=== PATIENT | male | born 2000 | race Caucasian/White ===

== ENCOUNTER 2019-01-03 12:22 | Emergency (ER) | payer BC ==
[2019-01-03 12:32] VITALS: TEMP 98.6
[2019-01-03] MEDS ORDERED: Alum-Mag Hydrox-Simethicone Susp (30 mL) PO STA (13:26)
--- NOTE | 2019-01-03 13:28 | C.PDOC ---
History Of Present Illness Patient is a 18 year old male who presents to the ED c/o transient left upper chest discomfort that began today at work while patient was on break. 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 He states that he spends 90 minutes doing cardio in the gym. Patient denies any GERD, abdominal pain, nausea, sweats, or SOB. Time Seen by Provider: 01/03/19 13:17 Chief Complaint (Nursing): Chest Pain History Per: Patient History/Exam Limitations: no limitations Onset/Duration Of Symptoms: Hrs Current Symptoms Are (Timing): Still Present Quality: Other (discomfort) Associated Symptoms: denies: Nausea, Dyspnea, Diaphoresis Recent travel outside of the [place]: No Additional History Per: Patient Past Medical History Reviewed: Historical Data, Nursing Documentation, Vital Signs Vital Signs: Last Vital Signs Temp 98.6 F 01/03/19 12:28 Pulse 73 01/03/19 12:28 Resp 17 01/03/19 12:28 BP 146/88 01/03/19 12:28 Pulse Ox 100 01/03/19 12:28 - Medical History PMH: No Chronic Diseases Surgical History: No Surg Hx Family History: States: No Known Family Hx - Social History Hx Alcohol Use: No Hx Substance Use: No - Immunization History Hx Tetanus Toxoid Vaccination: No Hx Influenza Vaccination: No Hx Pneumococcal Vaccination: No Review Of Systems Constitutional: Negative for: Sweats Cardiovascular: Positive for: Other (chest discomfort) Respiratory: Positive for: Other (unlimted exercise tolerance spends 90 minuters cardio in the gym). Negative for: Shortness of Breath Gastrointestinal: Negative for: Nausea, Abdominal Pain, Other (GERD) Physical Exam - Physical Exam Appears: Non-toxic, No Acute Distress, Other ( male) Skin: Normal Color, Warm, Dry Head: Atraumatic, Normacephalic Oral Mucosa: Moist Neck: Normal ROM, Supple Chest: Symmetrical, No Deformity Cardiovascular: Rhythm Regular, No Murmur Respiratory: Normal Breath Sounds, No Rales, No Rhonchi, No Wheezing Gastrointestinal/Abdominal: Soft, No Tenderness Extremity: Normal ROM Neurological/Psych: Oriented x3, Normal Speech, Normal Cognition ED Course And Treatment ECG: Interpreted By Me, Viewed By Me ECG Rhythm: Sinus Rhythm Rate From EC O2 Sat by Pulse Oximetry: 100 (on RA) Pulse Ox Interpretation: Normal Medical Decision Making Medical Decision Making: Plan: Pepcid 20mg PO Maalox Plus 30ml PO L upper chest discomrfort @ rest, resolved [employer], unlimited ex melissa (90 mins) and asymptomatic with normal EKG now LOW susp ACS more likely costochondritis/GERD Maalox PRN opt f/u. Disposition Doctor Will See Patient In The: Office Counseled Patient/Family Regarding: Studies Performed, Diagnosis - Disposition Referrals: [facility] [Outside] [facility] [place] [Outside] [facility] [Outside] [facility] [Outside] Disposition: HOME/ ROUTINE Disposition Time: 13:28 Condition: GOOD Additional Instructions: GERD Pepcid 20 mg @ night for 1 month Maalox 3-4x/day as needed if suspected GERD symptoms occur opt f/u with GI as needed Costochondritis often digitally and positionally reproducable often with repetative work w hands @ chest level usually resolved in 1-2 weeks opt f/u for Cardio eval as needed LOW susp of Cardiac abn NORMAL EKG today Instructions: Costochondritis, Acid Reflux (Gastroesophageal Reflux Disease), Adult (DC) Forms: [facility] ([place]) - Clinical Impression Clinical Impression: Chest discomfort - Scribe Statement The provider has reviewed the documentation as recorded by the Scribparisa Rosenthal All medical record entries made by the Scribe were at my direction and personally dictated by me. I have reviewed the chart and agree that the record accurately reflects my personal performance of the history, physical exam, medical decision making, and the department course for this patient. I have also personally directed, reviewed, and agree with the discharge instructions and disposition.
[2019-01-03] MEDS ORDERED: Aluminum Hydroxide/Magnesium Hydroxide Susp (30 mL) ONE (13:43)
[2019-01-03 13:52] VITALS: BP 107/85; PULSE 76; RESP 14
[2019-01-03 15:27] VITALS: O2SAT 100
== END 2019-01-03 13:50 | disposition home or self-care (01) ==
LOC: C.ER 12:22
DX: R07.9 Chest pain, unspecified (principal)